=== PATIENT | male | born 1985 | race Two or more races ===

== ENCOUNTER 2019-02-16 09:30 | Emergency (ER) | payer MEDICAID ==
[~2019-02-16] VITALS: Ht 172.7 cm; Wt 100.0 kg
[2019-02-16 09:52] VITALS: BP 141/80
== END 2019-02-16 10:37 | disposition home or self-care (01) ==
LOC: ER 09:30
DX: E11.9 Type 2 diabetes mellitus without complications (principal); Z88.9 Allergy status to unspecified drugs, medicaments and biological substances
CPT/HCPCS: 99283